=== PATIENT | female | born 1995 | race African-American/Black ===

== ENCOUNTER 2022-03-25 20:10 | Emergency (ER) | payer OTHER ==
[2022-03-25 20:19] VITALS: BP 134/68
[2022-03-25 20:40] LABS: BILIRUBIN,URINE NEGATIVE (NEGATIVE); GLUCOSE, URINE (UA) NEGATIVE (NEGATIVE); KETONES,URINE (UA) TRACE mg/dL (NEGATIVE); LEUKOCYTE ESTERASE, URINE NEGATIVE (NEGATIVE); NITRITE,URINE NEGATIVE (NEGATIVE); OCCULT BLOOD,URINE NEGATIVE (NEGATIVE); PH,URINE 6.5 PH (5.0-7.5); PROTEIN,URINE NEGATIVE (NEGATIVE); UROBILINOGEN,URINE 0.2 (NORMAL) E.U./dL (NORMAL)
[2022-03-25 20:44] LABS: CLARITY,URINE CLEAR (CLEAR); HCG UR QUAL NEGATIVE
--- NOTE | 2022-03-25 21:24 | ED Physician Documentation ---
PD HPI FEMALE - Stated complaint Stated Complaint: CRAMPING,HEAVY BLEEDING - Chief complaint Chief Complaint: Abd Pain - Additional information Additional information: Patient is a 27-year-old female presenting for evaluation after an episode of vaginal bleeding and cramping that occurred a few hours ago. Patient is on Depo-Provera for contraception and had received her first injection in December. She has been without vaginal bleeding or spotting since this injection. She is due for her next injection at the beginning of March.She reported feeling a cramping sensation and having vaginal bleeding with passage of 2 clots. She did not soak through a pad. The bleeding has since resolved. She was concerned about and did not have a home test.She denies vaginal discharge or concern for STDs. She denies pelvic pain. No fever, chest pain, upper abdominal pain, vomiting, dysuria. Review of Systems Constitutional: denies: Fever Nose: denies: Congestion Cardiac: denies: Chest pain / pressure Respiratory: denies: Dyspnea GI: denies: Abdominal Pain, Vomiting : reports: Vaginal bleeding. 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 Other Past Medical History: Hx of - Past Surgical History Past Surgical History: No - Present Medications Home Medications: Ambulatory Orders Medication Instructions Recorded Confirmed Medroxyprogesterone Acetate 03/25/22 [Depo-Provera] - Allergies Allergies/Adverse Reactions: Allergies Allergy/AdvReac Type Severity Reaction Status Date / Time No Known Drug Allergies Allergy Verified 03/25/22 20:16 - Social History Does the pt smoke?: No Smoking Status: Never smoker - POLST Patient has POLST: No PD ED PE NORMAL - General General: Alert and oriented X 3, No acute distress, Well developed/nourished - HEENT HEENT: Atraumatic, Moist mucous membranes - Neck Neck: Supple, no meningeal sign - Cardiac Cardiac: RRR, No murmur, Strong equal pulses - Respiratory Respiratory: No respiratory distress, Clear bilaterally - Abdomen Abdomen: Normal bowel sounds, Soft, Non tender, Non distended - Female Female : No: Deferred (Patient reports vaginal bleeding has stopped) - Back Back: No: No CVA TTP - Derm Derm: Normal color - Extremities Extremities: No edema - Neuro Neuro: No motor deficit, Normal speech - Psych Psych: Normal mood, Normal affect Results - Vitals Vitals: Vital Signs - 24 hr 03/25/22 03/25/22 20:16 20:25 Temperature 36.5 C Heart Rate 75 70 Respiratory 16 14 Rate Blood Pressure 134/68 H O2 Saturation 98 Oxygen O2 Source Room air - Labs Labs: Laboratory Tests 03/25/22 20:30 Urine Color YELLOW Urine Clarity CLEAR Urine pH 6.5 Ur Specific [place] 1.020 Urine Protein NEGATIVE Urine Glucose (UA) NEGATIVE Urine Ketones TRACE Urine Occult Blood NEGATIVE Urine Nitrite NEGATIVE Urine Bilirubin NEGATIVE Urine Urobilinogen 0.2 (NORMAL) Ur Leukocyte Esterase NEGATIVE Ur Microscopic Review NOT INDICATED Urine Culture Comments NOT INDICATED Urine HCG, Qual NEGATIVE PD MEDICAL DECISION MAKING - ED course ED course: Patient presenting for evaluation of vaginal bleeding and clots. Episode has resolved. Vital signs are stable. On exam she has no abdominal tenderness on deep palpation. She denies concerns for sexually transmitted infections or abnormal vaginal discharge. Patient is concerned that she could be . Her test is negative and urine analysis does not suggest infection. Patient was counseled that Depo-Provera could have episodes of unexplained bleedingAnd would recommend close follow-up with her doctor. Also advised on strict return precautions. As she has no pelvic pain, tenderness on exam, complaints of abnormal discharge, And bleeding had resolved,Pelvic exam was deferred. Departure - Departure Disposition: 01 Home, Self Care Clinical Impression: Vaginal bleeding Condition: Stable Instructions: Medroxyprogesterone injection [Contraceptive] Comments: Your evaluated after an episode of vaginal bleeding. Your test is negative. You are on Depo-Provera which may at times cause unexplained bleeding. As you do not have bleeding currently or pelvic pain, no further testing was done. However if it anytime you develop pelvic discomfort, abnormal vaginal discharge, heavy vaginal bleeding (soaking through a pad an hour for several hours) or have other concerns please return to the emergency department. Please schedule your next appointment for another Depo injection in early March as scheduled. Discharge Date/Time: 03/25/22 21:15
== END 2022-03-25 21:15 | disposition home or self-care (01) ==
LOC: ED 20:10
DX: N93.9 Abnormal uterine and vaginal bleeding, unspecified (principal)
CPT/HCPCS: 81001; 81003; 81025; 87086; 99282; 99283